=== PATIENT | female | born 1990 | race American Indian/Alaskan Native ===

== ENCOUNTER 2017-11-03 01:51 | Emergency (ER) | payer SELFPAY ==
[2017-11-03 03:23] VITALS: BP 115/73
[2017-11-03] MEDS ORDERED: MOTRIN ONE (03:29)
[2017-11-03] MEDS ORDERED: MOTRIN PO ONE (03:32)
--- NOTE | 2017-11-03 04:03 | XRay Report ---
FINAL REPORT PROCEDURE: XR TIBIA FIBULA 2V LT TECHNIQUE: LEFT tibia and fibula radiographs, AP and lateral views. CPT 02490 HISTORY: pain and swelling COMPARISON: No prior studies are available for comparison. FINDINGS: Fracture (s) and/or Dislocation(s): None . Joint space(s): Normal . Soft tissues: Normal . Bone mineralization: Normal . Foreign bodies: None . IMPRESSION: Normal Examination.
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
== END 2017-11-03 05:23 | disposition home or self-care (01) ==
LOC: ED 01:51
DX: M25.562 Pain in left knee (principal); Y08.89XA Assault by other specified means, initial encounter; Y93.89 Activity, other specified; Y92.89 Other specified places as the place of occurrence of the external cause; Y99.8 Other external cause status